=== PATIENT | female | born 1950 | race Caucasian/White ===

== ENCOUNTER 2024-08-14 14:53 | Emergency (ER) | payer MEDICARE, OTHER, SELFPAY ==
[2024-08-14 14:56] VITALS: BP 198/76
--- NOTE | 2024-08-14 16:38 | ED.GENMED ---
History of Present Illness
General
Chief Complaint: Back Pain
Source: patient
Exam Limitations: none
Time Seen by Provider: 08/14/24 16:09
Nursing documentation reviewed up to this point in time: agreed with
History of Present Illness
History of Present Illness:
73-year-old female with past medical history of paroxysmal A-fib on Eliquis, CAD pacemaker hyperlipidemia anemia chronic kidney disease presents to the ER for evaluation of back pain. She reports she has had intermittent back issues for years
however recently she has had spasms since June and thoracic region of her back. She reports it comes and goes and seems worse after she is walking or exerting herself.
She did see her family doctor and was given Flexeril which did not help. In addition she has been taking methocarbamol without relief. She is in physical therapy. She denies any associated chest pain. Her friend is at bedside she does have
cardiac issues and wants also to be sure this is not a cardiac issue since it seems worse after exertion.
She has not seen a specialist.
Past History
Past History
ED Past Medical History: Arrthythmia (Atrial fibrillation), CAD, CHF, COPD, HTN, Hypercholesterolemia and Other (Chronic kidney disease, obesity, sleep apnea)
ED Past Surgical History: Cardiac (CABG �3)
Social History
Tobacco: Non-smoker
Alcohol: None
Personal:
Living: alone
Employment: Retired
Family History
Family History: Other (Noncontributory)
Review of Systems
Review of Systems
Allergies reviewed?: Yes
All Other Systems: ROS reviewed and negative except as documented in HPI and ROS
Constitutional: Reports no symptoms
Phy Exam
General Physical Exam
General Presentation: no apparent distress
General age: appears stated age
General Skin: warm and dry
General Mental: alert
General Hydration: appears well hydrated
Cardiovascular Exam
Cardiovascular Exam: regular rate/rhythm, no murmur and normal peripheral pulses
Pulmonary Exam
Pulmonary Exam: lungs clear and no respiratory distress
Neurological Exam
Neurological Exam: alert and oriented x3
Musculoskeletal Exam
Musculoskeletal Exam: full ROM and other (non tender to midback )
Skin Exam
Skin Exam: normal color and warm/dry
Psychiatric Exam
Psychiatric Exam: normal mood/affect
Course
Orders/Labs/Results
Orders:
Orders
08/14/24 16:37
Electrocardiogram (*1) Stat
Reason for Study: Other
Other Reason for Exam: chest pain
Cardiac Monitoring- Treatment ONCE
EKG- Treatment ONCE
IV Insert/Care/Rem.- Treatment PRN
diazePAM [Valium Injection] 2 mg IV NOW STA
CR Thoracic Spine 3 Views Urgent
Reason For Exam: pain
08/14/24 17:03
Complete Blood Count/With Diff Urgent
Comprehensive Metabolic Panel Urgent
Troponin I Urgent
Abnormal Lab Results
08/14/24
17:03
RBC 3.67 L 10^6/uL
(4.20-5.40)
Hgb 11.9 L g/dL
(12.0-16.0)
Hct 36.6 L %
(37.0-47.0)
MCV 99.7 H fL
(81.0-99.0)
MCH 32.4 H pg
(27.0-31.0)
MCHC 32.5 L g/dL
(33.0-37.0)
MPV 10.7 H fL
(7.4-10.4)
Absolute Monos (auto) 0.7 H 10^3/uL
(0.1-0.6)
Lymphocytes % 19.2 L %
(20.5-51.1)
Monocytes % 9.7 H %
(1.7-9.3)
Chloride 109 H mmol/L
(98-107)
BUN 26 H mg/dl
(7-17)
Creatinine 1.2 H mg/dL
(0.6-1.0)
Glucose 117 H mg/dl
(70-99)
08/14/24 17:03
08/14/24 17:03
Vital Signs
Initial and Last Documented VS:
Initial Vital Signs
Temp Pulse Resp BP Pulse Ox
97.7 F 71 18 198/76 98
08/14/24 14:56 08/14/24 14:56 08/14/24 14:56 08/14/24 14:56 08/14/24 14:56
Last Documented Vital Signs
Temp Pulse Resp BP Pulse Ox
97.7 F 79 26 156/56 96
08/14/24 14:56 08/14/24 18:00 08/14/24 18:00 08/14/24 18:00 08/14/24 18:00
MDM/Problems Addressed
MDM/Problems Addressed:
Symptoms are consistent with chronic back pain, x-ray does show degenerative findings. No concerning symptoms negative cardiac troponin no chest pain or shortness of breath. Patient has used Flexeril and methocarbamol with no relief. She was
given 2 mg of IV Valium feeling much better here in the ER she did tolerate that well. With her age I did discuss with patient that this is typically not first-line however she has had significant relief and feels that she will do well with this at
home we will give 5 tablets and have her further discuss this with her family doctor. Also recommend Ortho follow-up and continue physical therapy.
*Radiology
Radiology exam reviewed: radiology read reviewed
*Pulse Oximetry
SaO2: 98
Oxygen Mode of Delivery: Room air
Patient hypoxic: no
*EKG
Interpreted by ED Provider?: Yes
Heart Rate: 72
Rate: normal
Rhythm: sinus
Ischemia: non-specific ST changes
*Critical Care Note
Total Time (30-74mins, 75-104mins- exclusive of procedures): Not Applicable
ED Attending Note
-
Portions of this chart may have been created with voice recognition software.� Occasional wrong word or��sound alike� substitutions may have occurred due to the inherent limitations of voice recognition software.
Discharge Plan
Departure
Patient Disposition: Home (Routine Discharge)
Date of Disposition: 08/14/24
Time of Disposition: 18:58
Patient with high blood pressure during this ER visit?: Yes
Condition: Fair
Covid-19: Not Applicable
Discharge Problem:
Back pain
Instructions: Upper Back Pain (DC), BLOOD PRESSURE
Prescriptions:
New
diazepam [Valium] 2 mg tablet
2 mg PO TID PRN (Reason: muscle spasm) Qty: 5 0RF
lidocaine 5 % adhesive patch,medicated
1 patch topical DAILY Qty: 15 0RF
No Action
apixaban [Eliquis] 5 MG tablet
5 mg PO BID Qty: 60 6RF
acetaminophen [Tylenol Extra Strength] 500 MG tablet
1,000 mg PO Q6HPRN PRN (Reason: mild pain)
lisinopril 20 MG tablet
20 mg PO DAILY
famotidine 40 MG tablet
40 mg PO QPM
cdeftuwsyip-ihtarljis-sdf C-Mn 1 EACH tablet
1 tab PO DAILY
multivit with min-folic acid [Multivitamin Gummies] 200 MCG tablet,chewable
400 mcg PO DAILY
Multivitamin With Minerals [Hair, Skin And Nails] 1 EACH Tablet
1 ea PO DAILY
furosemide 20 MG tablet
20 mg PO DAILY PRN (Reason: blood pressure)
sotalol 80 MG tablet
80 mg PO BID Qty: 60 11RF
Referrals:
Jules Us MD [Active, Orthopedics]
Rabia Mina MD [Family Provider, Family Practice]
Activity Restrictions/Additional Instructions:
As discussed a small prescription for Valium was sent to pharmacy take as directed. This medication will cause drowsiness. No driving or drinking alcohol taking this medication. In addition a prescription for lidocaine patch was sent to your
pharmacy use as directed. Follow-up closely with your family doctor the next several days continue physical therapy. In addition is recommended that you follow-up with orthopedics. Return if any worsening of symptoms.
Interventions
Interventions:
*Risk Screen - Suicide Last Done: 08/14/24 14:56
*General Assessment Last Done: 08/14/24 14:56
*Neglect/Abuse Screening Last Done: 08/14/24 14:56
*ED- Fall Risk Assessment Last Done: 08/14/24 14:56
*ED COVID-19 Vaccine History Last Done: 08/14/24 14:56
ED-Musculoskeletal Assessment Last Done: 08/14/24 17:21
Discharge Date and Time
Print Language: BELARUSIAN
[2024-08-14 17:13] LABS: % Basophils 0.5 % (0-2); % Eosinophils 1.1 % (0-6); % Immature Granulocytes 0.3 % (0-0.5); % Lymphocytes 19.2 % (20.5-51.1); % Monocytes 9.7 % (1.7-9.3); % Neutrophils 69.2 % (42.2-75.2); Absolute Eosinophils 0.1 10^3/uL (0-0.7); Absolute Lymphocytes 1.4 10^3/uL (1.2-3.4); Absolute Monocytes 0.7 10^3/uL (0.1-0.6); Absolute Neutrophils 5.2 10^3/uL (1.4-6.5); Hematocrit 36.6 % (37.0-47.0); Hemoglobin 11.9 g/dL (12.0-16.0); Mean Corp Hgb Conc. 32.5 g/dL (33.0-37.0); Mean Corpuscular Hgb 32.4 pg (27.0-31.0); Mean Corpuscular Volume 99.7 fL (81.0-99.0); Mean Platelet Volume 10.7 fL (7.4-10.4); Nucleated Red Blood Cells % 0 %; Platelet Count 144 10^3/uL (130-400); Red Blood Cell Count 3.67 10^6/uL (4.20-5.40); White Blood Cell Count 7.4 10^3/uL (4.8-10.8)
[2024-08-14 17:34] LABS: ALT (SGPT) 31 U/L (0-35); AST (SGOT) 33 U/L (14-36); Albumin 4.2 g/dl (3.5-5.0); Alkaline Phosphatase 60 U/L (38-126); Blood Urea Nitrogen 26 mg/dl (7-17); Calcium 9.2 mg/dl (8.4-10.2); Carbon Dioxide 27 mmol/L (22-30); Chloride 109 mmol/L (98-107); Glucose 117 mg/dl (70-99); Potassium 4.8 mmol/L (3.5-5.1); Sodium 142 mmol/L (135-145); Total Bilirubin 0.7 mg/dl (0.2-1.3); Total Protein 7.1 g/dl (6.3-8.2); eGFR 48.39
[2024-08-14 17:36] LABS: Troponin I < 0.012 ng/ml
[2024-08-14] MEDS: VALIUM INJECTION 2 MG IV (17:55)
[2024-08-14 18:00] VITALS: BP 156/56
[2024-08-14 19:00] VITALS: BP 152/80
[2024-08-14] MEDS: LIDOCAINE 4% PATCH 1 PATCH TOPICAL (19:56)
== END 2024-08-14 20:05 | disposition home or self-care (01) ==
LOC: EMR 14:53
PROVIDERS: Nurse Practitioner; EMERGENCY PHYSICIAN Emergency Medicine; FAMILY PHYSICIAN Family Medicine
DX: M54.6 Pain in thoracic spine (principal); I48.0 Paroxysmal atrial fibrillation; I25.10 Atherosclerotic heart disease of native coronary artery without angina pectoris; I13.0 Hypertensive heart and chronic kidney disease with heart failure and stage 1 through stage 4 chronic kidney disease, or unspecified chronic kidney disease; I50.9 Heart failure, unspecified; N18.9 Chronic kidney disease, unspecified; D63.1 Anemia in chronic kidney disease; J44.9 Chronic obstructive pulmonary disease, unspecified; G47.30 Sleep apnea, unspecified; E78.00 Pure hypercholesterolemia, unspecified; Z95.1 Presence of aortocoronary bypass graft; Z95.0 Presence of cardiac pacemaker; Z79.01 Long term (current) use of anticoagulants
CPT/HCPCS: 96374; 99284; 72072; 80053; 84484; 85025; 93005